=== PATIENT | male | born 1975 | race Caucasian/White ===

== ENCOUNTER 2022-04-30 07:48 | Day surgery (SDC) | payer BC ==
[2022-04-30] MEDS: Lactated Ringers 1,000 ML IV SCH (08:22)
[2022-04-30] MEDS ORDERED: Propofol 200 MG/20 ML SDV ONE ×2 (08:56→10:22)
[2022-04-30] MEDS ORDERED: fentaNYL 100 MCG/2 ML SDV ONE (08:56)
[2022-04-30 11:23] VITALS: BP 125/82; PULSE 68
== END 2022-04-30 11:54 | disposition home or self-care (01) ==
LOC: VM.SDS 07:48
PROVIDERS: ATTEND Student in an Organized Health Care Education/Training Program
DX: Z12.11 Encounter for screening for malignant neoplasm of colon (principal); K63.5 Polyp of colon; F17.210 Nicotine dependence, cigarettes, uncomplicated; Z80.0 Family history of malignant neoplasm of digestive organs; Z98.890 Other specified postprocedural states
CPT/HCPCS: 00812; J2704; J3010; J7120